=== PATIENT | male | born 1985 | race Caucasian/White ===

== ENCOUNTER 2017-07-01 20:49 | Emergency (ER) | payer BC ==
[2017-07-01 21:24] VITALS: BP 123/82
--- NOTE | 2017-07-01 21:43 | UC ---
Lower Extremity/Ankle HPI - HPI Summary HPI Summary: Left foot cramp today. Awoke with it and it has not gone away. Pain now up toward the back of the knee. No swelling. No new activities. - History of Current Complaint Chief Complaint: UCLowerExtremity Stated Complaint: BOTTOM LEFT FOOT COMPLAINT Time Seen by Provider: 07/01/17 21:36 Hx Obtained From: Patient Onset/Duration: Sudden Onset - this AM, Worse Since - onset Severity Initially: Mild Severity Currently: Severe Pain Intensity: 10 Aggravating Factor(s): Standing, Ambulation Alleviating Factor(s): Rest, Elevation Able to Bear Weight: Yes - Allergies/Home Medications Allergies/Adverse Reactions: Allergies Allergy/AdvReac Type Severity Reaction Status Date / Time Beef Allergy Allergy Unknown Verified 07/01/17 21:15 Reaction Details Home Medications: Home Medications Fluoxetine HCl 40 mg PO DAILY 07/01/17 [History Confirmed 07/01/17] Lisinopril & Hydrochlorothiazi [Zestoretic 20-25 mg-] 1 tab PO DAILY 07/01/17 [ History Confirmed 07/01/17] Naproxen [Naprosyn 500 mg] 500 mg PO BID PRN 07/01/17 [History Confirmed ] PMH/Surg Hx/FS Hx/Imm Hx Cardiovascular History: Hypertension - Surgical History Surgical History: Yes Surgery Procedure, Year, and Place: T&A A CHILD - Family History Known Family History: Positive: Cardiac Disease, Hypertension - Social History Occupation: Employed Full-time Lives: With Family Alcohol Use: Weekly Substance Use Type: None Smoking Status (MU): Never Smoked Tobacco Type: Smokeless Tobacco Amount Used/How Often: 1 CAN PER DAY Length of Time of Smoking/Using Tobacco: 10 YRS - Immunization History Most Recent Tetanus Shot: WITHIN 5 YEARS Review of Systems Musculoskeletal: Myalgia - in the foot Is Patient Immunocompromised?: No All Other Systems Reviewed And Are Negative: Yes Physical Exam Triage Information Reviewed: Yes Appearance: Well-Appearing, Pain Distress, Obese Vital Signs: Initial Vital Signs Temp 98.2 F 07/01/17 21:18 Pulse 90 07/01/17 21:18 Resp 18 07/01/17 21:18 BP 123/82 07/01/17 21:18 Pulse Ox 99 07/01/17 21:18 Vital Signs Reviewed: Yes Eyes: Positive: Conjunctiva Clear Neck exam: Normal Respiratory Exam: Normal Cardiovascular Exam: Normal Musculoskeletal: Positive: No Edema - and negative homans., ROM Limited @ - left foot, Other: - tender with muscle knot on the plantar midfoot with extreme tenderness. Neurological Exam: Normal Psychological Exam: Normal Skin Exam: Normal Lower Extremity Course/Dx - Differential Dx/Diagnosis Differential Diagnosis/HQI/PQRI: Contusion, Sprain, Strain Provider Diagnoses: muscle spasm/ cramp Discharge - Discharge Plan Condition: Stable Disposition: HOME Patient Education Materials: Muscle Cramp (ED) Referrals: Jenny Perez MD [Primary Care Provider] - Additional Instructions: Hydration. Magnesium 400 or 500mg twice a day.
== END 2017-07-01 22:04 | disposition home or self-care (01) ==
LOC: UCCORT 20:49
DX: M62.838 Other muscle spasm (principal); R25.2 Cramp and spasm; F17.220 Nicotine dependence, chewing tobacco, uncomplicated; I10 Essential (primary) hypertension
CPT/HCPCS: 99211; G0463

== ENCOUNTER 2019-02-11 15:13 | Emergency (ER) | payer BC ==
[2019-02-11 15:33] VITALS: BP 149/82
--- NOTE | 2019-02-11 15:40 | UC ---
UC General HPI - HPI Summary HPI Summary: pt roused this am with pain and swelling in his R knee. he left work early due to the discomfort. he took some IB and applied ice and the knee is feeling much better. he denies any injury but does a form of cross fit 5 days a week. - History of Current Complaint Chief Complaint: UCLowerExtremity Stated Complaint: RT KNEE PAIN Time Seen by Provider: 02/11/19 15:30 Hx Obtained From: Patient Pain Intensity: 3 Aggravating: bending the knee Associated Signs & Symptoms: Negative: Weakness - Allergy/Home Medications Allergies/Adverse Reactions: Allergies Allergy/AdvReac Type Severity Reaction Status Date / Time No Known Allergies Allergy Verified 02/11/19 15:31 PMH/Surg Hx/FS Hx/Imm Hx Cardiovascular History: Hypertension Psychological History: Depression - Surgical History Surgical History: Yes Surgery Procedure, Year, and Place: T&A A CHILD - Family History Known Family History: Positive: Cardiac Disease, Hypertension - Social History Alcohol Use: Daily Substance Use Type: None Smoking Status (MU): Never Smoked Tobacco Type: Smokeless Tobacco Amount Used/How Often: 1 CAN PER DAY Length of Time of Smoking/Using Tobacco: 10 YRS - Immunization History Most Recent Tetanus Shot: unsure Review of Systems All Other Systems Reviewed And Are Negative: No Constitutional: Negative: Fever Skin: Negative: Rash Musculoskeletal: Negative: Decreased ROM Neurological: Negative: Weakness, Paresthesia, Numbness Physical Exam Triage Information Reviewed: Yes Appearance: Well-Appearing Vital Signs: Initial Vital Signs Temp 98.2 F 02/11/19 15:29 Pulse 66 02/11/19 15:29 Resp 14 02/11/19 15:29 BP 149/82 02/11/19 15:29 Pulse Ox 100 02/11/19 15:29 Vital Signs Reviewed: Yes Musculoskeletal: Positive: Other: - RLE: hip, achilles, ankle and foot are without deformity or tenderness. R knee has mild anterior swelling. no popliteal swelling or tenderness and no joint laxity. Calf is without swelling, cords or tenderness. Neurological: Positive: Alert Psychological: Positive: Age Appropriate Behavior Skin Exam: Normal Skin: Negative: Rashes Diagnostics - Radiology No standard instances Radiology Interpretation Completed By: Radiologist - IMPRESSION: NO ACUTE OSSEOUS INJURY. IF SYMPTOMS PERSIST, RECOMMEND REPEAT IMAGING Course/Dx - Differential Dx - Multi-Symptom Differential Diagnoses: Other - Diagnoses Provider Diagnosis: Right knee pain, Effusion, right knee Discharge ED - Sign-Out/Discharge Documenting (check all that apply): Patient Departure All imaging exams completed and their final reports reviewed: Yes - Discharge Plan Condition: Stable Disposition: HOME Prescriptions: Naproxen [Naprosyn 500 mg tab] 500 mg PO BID 5 Days #10 tablet Patient Education Materials: Knee Pain (ED), Swollen Knee Joint (ED) Forms: *Work Release Referrals: Quentin Chang MD [Medical Doctor] - As Soon As Possible Additional Instructions: BRANDO DURING DAY, REMOVE AT BEDTIME. - Billing Disposition and Condition Condition: STABLE Disposition: Home
== END 2019-02-11 16:49 | disposition home or self-care (01) ==
LOC: UCCORT 15:13
DX: M25.561 Pain in right knee (principal); M25.461 Effusion, right knee; I10 Essential (primary) hypertension; F17.220 Nicotine dependence, chewing tobacco, uncomplicated
CPT/HCPCS: 99212; G0463

== ENCOUNTER 2019-06-19 08:26 | Emergency (ER) | payer BC ==
[2019-06-19 09:33] VITALS: BP 132/82
--- NOTE | 2019-06-19 10:04 | UC ---
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 2-3 days ago he started developing significant pain at the back of his foot - hard to move it around. He is walking on it but with difficulty. Has not taken anything for it. Meds: reviewed - History of Current Complaint Chief Complaint: UCLowerExtremity Stated Complaint: R HEAL PAIN Time Seen by Provider: 06/19/19 09:30 Pain Intensity: 7 - Allergy/Home Medications Allergies/Adverse Reactions: Allergies Allergy/AdvReac Type Severity Reaction Status Date / Time No Known Allergies Allergy Verified 06/19/19 09:19 PMH/Surg Hx/FS Hx/Imm Hx Previously Healthy: Yes Cardiovascular History: Hypertension - Surgical History Surgical History: Yes Surgery Procedure, Year, and Place: T&A A CHILD - Family History Known Family History: Positive: Cardiac Disease, Hypertension - Social History Alcohol Use: Daily Substance Use Type: None Smoking Status (MU): Never Smoked Tobacco Type: Smokeless Tobacco Amount Used/How Often: over one can a day Length of Time of Smoking/Using Tobacco: 10 YRS - Immunization History Most Recent Tetanus Shot: unsure Review of Systems All Other Systems Reviewed And Are Negative: Yes Musculoskeletal: Positive: Decreased ROM Physical Exam Triage Information Reviewed: Yes Appearance: Well-Appearing Vital Signs: Initial Vital Signs Temp 97.9 F 06/19/19 09:21 Pulse 74 06/19/19 09:21 Resp 18 06/19/19 09:21 BP 132/82 06/19/19 09:21 Pulse Ox 100 06/19/19 09:21 Musculoskeletal: Positive: Other: - right achilles insertion edema and erythema - pain at insertion site, limited dorsiflexion due to pain. Good pulses Diagnostics - Radiology right ankle xray Radiology Interpretation Completed By: Radiologist Summary of Radiographic Findings: No acute osseous injury Course/Dx - Course Course Of Treatment: This is a 34 yr old with achilles pain xray: negative Plan Go directly to [facility] [address] to follow up and evaluate for achilles rupture/tear/tendinitis Elevate, ice and ibuprofen as needed for pain/swelling - Diagnoses Provider Diagnosis: Achilles tendinitis, right leg Discharge ED - Sign-Out/Discharge Documenting (check all that apply): Patient Departure All imaging exams completed and their final reports reviewed: Yes - Discharge Plan Condition: Fair Disposition: HOME Patient Education Materials: Achilles Tendinitis (ED) Referrals: Jenny Perez MD [Primary Care Provider] - Additional Instructions: Go directly to [facility] to follow up and evaluate for achilles rupture/tear/tendinitis Elevate, ice and ibuprofen as needed for pain/swelling - Billing Disposition and Condition Condition: FAIR Disposition: Home
== END 2019-06-19 10:44 | disposition home or self-care (01) ==
LOC: UCCORT 08:26
DX: M76.61 Achilles tendinitis, right leg (principal); I10 Essential (primary) hypertension; Z82.49 Family history of ischemic heart disease and other diseases of the circulatory system; X50.0XXA Overexertion from strenuous movement or load, initial encounter; Y92.9 Unspecified place or not applicable
CPT/HCPCS: 99211; G0463